=== PATIENT | male | born 1990 | race Caucasian/White ===

== ENCOUNTER 2021-05-13 21:49 | Emergency (ER) | payer MEDICAID, OTHER ==
[2021-05-13 22:04] VITALS: BP 131/64; PULSE 95
--- NOTE | 2021-05-13 22:46 | EDM.PDOCBH ---
ED HPI GENERAL MEDICAL PROBLEM - General Chief Complaint: Drug or Alcohol Abuse Stated Complaint: LAW ENFORCEMENT Time Seen by Provider: 05/13/21 22:35 Source of Information: Reports: Patient History Limitations: Reports: No Limitations - History of Present Illness INITIAL COMMENTS - FREE TEXT/NARRATIVE: This 30 yo male patient reports to the ED due to being tazed by an [facility] officer. The patient report no current pain. The patient's tazers barbs were removed by the officer prior to arrival. The patient admits to drinking alcohol today and regularly smokes marijuana. Onset: Today Duration: Hour(s): Location: Reports: Chest Quality: Reports: Ache Severity: Mild Improves with: Reports: None Worsens with: Reports: None Context: Reports: Activity Associated Symptoms: Reports: No Other Symptoms - Related Data Allergies Allergy/AdvReac Type Severity Reaction Status Date / Time amoxicillin Allergy Hives Verified 05/13/21 22:04 Penicillins Allergy Hives Verified 05/13/21 22:04 Home Meds: Home Meds Ibuprofen [Advil] 600 mg PO Q6H PRN 05/01/15 [History] Past Medical History - Past Health History Medical/Surgical History: Denies Medical/Surgical History Other HEENT History: 05/01/15: 2 weeks ago had wax impaction in left ear and blown ear drum on the right side Other Psychiatric History: Alcohol abuse history Social & Family History - Tobacco Use Tobacco Use Status *Q: Current Every Day Tobacco User Years of Tobacco use: 14 Packs/Tins Daily: 1 - Caffeine Use Caffeine Use: Reports: Coffee, Energy Drinks, Soda, Tea, Other - Recreational Drug Use Recreational Drug Use: No ED ROS GENERAL - Review of Systems Review Of Systems: Comprehensive ROS is negative, except as noted in HPI. ED EXAM, BEHAVIORAL HEALTH - Physical Exam Exam: See Below Exam Limited By: No Limitations General Appearance: Alert, WD/WN, No Apparent Distress Eye Exam: Bilateral Eye: EOMI, Normal Inspection, PERRL Ears: Normal External Exam, Normal Canal, Hearing Grossly Normal, Normal TMs Nose: Normal Inspection, Normal Mucosa, No Blood Throat/Mouth: Normal Inspection, Normal Lips, Normal Teeth, Normal Gums, Normal Oropharynx, Normal Voice, No Airway Compromise Head: Atraumatic, Normocephalic Neck: Normal Inspection, Supple, Non-Tender, Full Range of Motion Respiratory/Chest: No Respiratory Distress, Lungs Clear, Normal Breath Sounds, No Accessory Muscle Use, Chest Non-Tender Cardiovascular: Normal Peripheral Pulses, Regular Rate, Rhythm, No Edema, No Gallop, No JVD, No Murmur, No Rub GI/Abdominal: Normal Bowel Sounds, Soft, Non-Tender, No Organomegaly, No Distention, No Abnormal Bruit, No Mass (Male) Exam: Deferred Rectal (Males) Exam: Deferred Back Exam: Normal Inspection, Full Range of Motion, NT Extremities: Normal Inspection, Normal Range of Motion, Non-Tender, Normal Capillary Refill, No Pedal Edema Neurological: Alert, Normal Mood/Affect, CN II-XII Intact, Normal Cognition, Normal Gait, Normal Reflexes, No Motor/Sensory Deficits, Oriented x 3 Psychiatric: Alert, Normal Affect, Normal Cognition, Normal Mood, Oriented Skin Exam: Other (The patient has one tazer shakila to his right upper chest and a second to his mid upper abdomen with no current bleeding or tenderness to the area. ) #1 Interpretation EKG Date: 05/13/21 Time: 21:36 Rhythm: NSR Rate (Beats/Min): 94 [place]: Normal P-Wave: Present QRS: Normal ST-T: Normal QT: Normal Comparison: NA - No Prior EKG COURSE, BEHAVIORAL HEALTH COMP - Course Vital Signs: Last Vital Signs Temp 99.2 F 05/13/21 22:03 Pulse 95 05/13/21 22:03 Resp 18 05/13/21 22:03 BP 131/64 05/13/21 22:03 Pulse Ox 96 05/13/21 22:03 Orders, Labs, Meds: Active Orders 24 hr Category Date Time Status DRUG SCREEN URINE BIORAD [URCHEM] Stat Lab 05/13/21 22:40 Ordered UA RFX TONIE AND CULT IF INDIC [URIN] Urgent Lab 05/13/21 22:40 Ordered Departure - Departure Time of Disposition: 22:43 Disposition: DC/Tfer to Court of Law En 21 Condition: Fair Clinical Impression: Medical clearance for incarceration - Discharge Information *PRESCRIPTION DRUG MONITORING PROGRAM REVIEWED*: Not Applicable *COPY OF PRESCRIPTION DRUG MONITORING REPORT IN PATIENT ROBERT: Not Applicable Forms: ED Department Discharge Care Plan Goals: The patient was advised of the examination and EKG results during the visit. The patient was encouraged to continue to monitor the areas for any swelling or signs of infection. The patient was medically stable during the visit. If the patient has any additional symptoms or concerns, the patient should either return to the emergency department or visit his primary care facility. Sepsis Event Note (ED) - Evaluation Sepsis Screening Result: No Definite Risk - Focused Exam Vital Signs: Vital Signs Temp Pulse Resp BP Pulse Ox 05/13/21 22:03 99.2 F 95 18 131/64 96 - My Orders Last 24 Hours: My Active Orders 05/13/21 22:40 DRUG SCREEN URINE BIORAD [URCHEM] Stat UA RFX TONIE AND CULT IF INDIC [URIN] Urgent - Assessment/Plan Last 24 Hours: My Active Orders 05/13/21 22:40 DRUG SCREEN URINE BIORAD [URCHEM] Stat UA RFX TONIE AND CULT IF INDIC [URIN] Urgent
== END 2021-05-13 22:57 ==
LOC: DL.ED 21:49
DX: Z02.89 Encounter for other administrative examinations (principal); Z88.0 Allergy status to penicillin; Z72.0 Tobacco use
CPT/HCPCS: 80305-QW; 81003; 93005; 93010; 99283; 99283-25